=== PATIENT | female | born 1980 | race Caucasian/White ===

== ENCOUNTER 2017-06-11 00:53 | Day surgery (SDC) | payer OTHER ==
[2017-06-11 02:01] LABS: Basophils % (Auto) 0.6 % (0.0-1.8); Eosinophils % (Auto) 2.9 % (0.0-4.3); Hematocrit 36.3 % (30.3-42.9); Hemoglobin 12.2 gm/dl (10.1-14.3); Mean Corpuscular HGB Conc 34 % (30-34); Mean Corpuscular Hemoglobin 28 pg (28-32); Mean Corpuscular Volume 82 fl (79-97); Platelet Count 205 K/mm3 (140-440); Red Blood Count 4.41 M/mm3 (3.65-5.03); Red Cell Distribution Width 13.8 % (13.2-15.2); White Blood Count 9.3 K/mm3 (4.5-11.0)
[2017-06-11 02:20] LABS: Alanine Aminotransferase 39 units/L (7-56); Albumin 4.2 g/dL (3.9-5); Albumin/Globulin Ratio 1.6 %; Alkaline Phosphatase 60 units/L (35-129); Anion Gap 19 mmol/L; BUN/Creatinine Ratio 20; Blood Urea Nitrogen 12 mg/dL (7-17); Calcium 8.9 mg/dL (8.4-10.2); Carbon Dioxide 23 mmol/L (22-30); Chloride 100.9 mmol/L (98-107); Glucose 96 mg/dL (65-100); Lipase 29 units/L (13-60); Potassium 4.5 mmol/L (3.6-5.0); Sodium 138 mmol/L (137-145); Total Protein 6.8 g/dL (6.3-8.2)
--- NOTE | 2017-06-11 03:43 | Ultrasound Report ---
FINAL REPORT EXAM: US OB TRANSVAGINAL HISTORY: pelvic pain, vaginal bleeding TECHNIQUE: Transvaginal imaging was obtained of the pelvis including Doppler interrogation of the uterus and adnexa. FINDINGS: The uterus is anteverted measuring 11.3 cm x 5.9 cm by 6.9 cm. The endometrial thickness is 14.9 millimeters. The endometrium has a heterogeneous echotexture with hyperechoic areas and cystic changes. An intact gestational sac is not identified. Overall findings are compatible with retained products of conception. There several small nabothian cysts in the cervix. Free fluid is not seen. The maternal right ovary is normal size contour and echotexture measuring 2 cm x 1.6 cm x 1.4 cm. The left ovary measures 3.6 cm x 2 cm x 2.1 cm. There is a functional cyst in the left ovary measuring 2.1 cm in diameter representing corpus luteum cyst. IMPRESSION: Thickened endometrium with heterogeneous echotexture of the endometrium suggesting retained products of conception. 2.1 cm functional cyst left ovary most likely representing a corpus luteum cyst. No evidence of free fluid in the pelvis.
[2017-06-11 06:02] LABS: Bilirubin,Urine NEG (Negative); Blood,Urine LG (Negative); Ketones,Urine NEG (Negative); Leukocyte Esterase,Urine NEG (Negative); Mucus,Urine 2+ /HPF; Nitrite,Urine NEG (Negative); RBC,Urine > 182.0 /HPF (0.0-6.0); Urobilinogen,Urine < 2.0 mg/dL (<2.0)
--- NOTE | 2017-06-11 06:45 | Ultrasound Report ---
FINAL REPORT EXAM: US OB < = 14 WEEKS FETUS HISTORY: pelvic pain, vaginal bleeding TECHNIQUE: Transabdominal imaging was obtained of the pelvis. Doppler interrogation was obtained of the uterus and adnexa. FINDINGS: The uterus is anteverted measures 11.3 cm x 5.9 cm x 6.9 cm. The endometrial thickness is 14.9 millimeters. The endometrium has a heterogeneous echotexture with hyperechoic areas and cystic areas suggesting retained products of conception. An intact gestational sac is not identified. There are several nabothian cysts in the cervix. Free fluid is not seen. The right ovary is normal in size contour and echotexture measuring 2 cm x 1.6 cm x 1.4 cm. The left ovary measures 3.6 cm x 2 cm x 2.1 cm. There is a functional cyst in left ovary measuring 2.1 cm in maximum dimension. IMPRESSION: Thickened heterogeneous endometrium compatible with retained products of conception. 2.1 cm functional cyst left ovary most likely representing corpus luteum cyst.
--- NOTE | 2017-06-11 09:27 | Emergency Department Report ---
ED Female HPI - General Chief complaint: Vaginal Bleeding Stated complaint: VAG BLEEDING Time Seen by Provider: 06/11/17 09:06 Source: patient Mode of arrival: Ambulatory Limitations: No Limitations - History of Present Illness Initial comments: Patient is 36 years old female 3 para 2 presented with 2 day history of vaginal bleeding. Patient stated that she passed a fetus this morning, she does have a picture and I form for that. She also complained of lower crampy abdominal pain. Patient denied any nausea vomiting and no syncopal episode. MD Complaint: vaginal bleeding Radiation: suprapubic Quality: cramping Are you Now?: Yes Associated Symptoms: vaginal bleeding - Related Data Sexually active: Yes : 3 Para: 2 Allergies Allergy/AdvReac Type Severity Reaction Status Date / Time No Known Allergies Allergy Verified 06/11/17 01:04 ED Review of Systems ROS: Stated complaint: VAG BLEEDING Other details as noted in HPI Comment: All other systems reviewed and negative Constitutional: denies: chills, diaphoresis Respiratory: denies: cough, shortness of breath, SOB with exertion Cardiovascular: denies: chest pain, palpitations Gastrointestinal: abdominal pain. denies: nausea, vomiting, diarrhea, constipation, hematemesis Genitourinary: denies: urgency, frequency, hematuria Musculoskeletal: denies: back pain Neurological: denies: headache, weakness ED Past Medical Hx - Past Medical History Previous Medical History?: No - Surgical History Past Surgical History?: No - Social History Smoking Status: Never Smoker Substance Use Type: None ED Physical Exam - General Limitations: No Limitations General appearance: alert, in no apparent distress - Head Head exam: Present: atraumatic, normocephalic - Eye Eye exam: Present: normal appearance, PERRL Pupils: Present: normal accommodation - ENT ENT exam: Present: normal exam, normal orophraynx - Respiratory Respiratory exam: Present: normal lung sounds bilaterally. Absent: respiratory distress, wheezes, rales, rhonchi, stridor, chest wall tenderness, accessory muscle use, decreased breath sounds, prolonged expiratory - Cardiovascular Cardiovascular Exam: Present: regular rate, normal rhythm, normal heart sounds - GI/Abdominal GI/Abdominal exam: Present: soft, tenderness (suprapubic), normal bowel sounds. Absent: distended, guarding, rebound, rigid, diminished bowel sounds, organomegaly, mass, bruit, pulsatile mass, hernia - External exam: Present: normal external exam Speculum exam: Present: vaginal bleeding - Extremities Exam Extremities exam: Present: normal inspection, full ROM. Absent: tenderness, normal capillary refill, pedal edema - Back Exam Back exam: Present: normal inspection. Absent: tenderness, CVA tenderness (R), CVA tenderness (L) - Neurological Exam Neurological exam: Present: alert, oriented X3, CN II-XII intact, normal gait - Skin Skin exam: Present: warm, intact, normal color. Absent: cyanosis, diaphoretic ED Course Vital Signs 06/11/17 06/11/17 01:04 07:53 Temperature 98.0 F 98.3 F Pulse Rate 76 64 Respiratory 18 18 Rate Blood Pressure 110/62 Blood Pressure 137/82 [Right] O2 Sat by Pulse 100 100 Oximetry ED Medical Decision Making - Lab Data Result diagrams: 06/11/17 01:11 06/11/17 01:11 - Radiology Data Radiology results: report reviewed Ordering Physician: ED MD ABDON Date of Service: 06/11/17 Procedure(s): US OB transvaginal Accession Number(s): [id number] cc: ED MD ABDON FINAL REPORT EXAM: US OB TRANSVAGINAL HISTORY: pelvic pain, vaginal bleeding TECHNIQUE: Transvaginal imaging was obtained of the pelvis including Doppler interrogation of the uterus and adnexa. FINDINGS: The uterus is anteverted measuring 11.3 cm x 5.9 cm by 6.9 cm. The endometrial thickness is 14.9 millimeters. The endometrium has a heterogeneous echotexture with hyperechoic areas and cystic changes. An intact gestational sac is not identified. Overall findings are compatible with retained products of conception. There several small nabothian cysts in the cervix. Free fluid is not seen. The maternal right ovary is normal size contour and echotexture measuring 2 cm x 1.6 cm x 1.4 cm. The left ovary measures 3.6 cm x 2 cm x 2.1 cm. There is a functional cyst in the left ovary measuring 2.1 cm in diameter representing corpus luteum cyst. IMPRESSION: Thickened endometrium with heterogeneous echotexture of the endometrium suggesting retained products of conception. 2.1 cm functional cyst left ovary most likely representing a corpus luteum cyst. No evidence of free fluid in the pelvis. Transcribed By: RB Dictated By: BALBIR RUELAS MD Electronically Authenticated By: BALBIR RUELAS MD Signed Date/Time: 06/10/172339 DD/ 39 TD/TT: 06/10/172339 - Medical Decision Making Discussed with Dr. Macisa, I informed the patient, Dr. Macias is in the ER examining the patient. Critical care attestation.: If time is entered above; I have spent that time in minutes in the direct care of this critically ill patient, excluding procedure time. ED Disposition Clinical Impression: Vaginal bleeding during , antepartum, Incomplete miscarriage with blood clot, Abdominal pain affecting Disposition: -09 OP ADMIT IP TO THIS HOSP Is pt being admited?: Yes Condition: Stable Referrals: PRIMARY CARE, [Primary Care Provider] - 3-5 Days
--- NOTE | 2017-06-11 10:08 | Short Stay Summary ---
Short Stay Documentation Date of service: 06/11/17 Narrative H&P: 36 yo unreferred patient seen in the ER who says she was "2 months' with LMP of 03/25/2017 and who comes in with heavy vaginal bleeding and says she passed fetus at home. U/S shows retained products of conception. She consents to suction D&C for incomplete AB. Both ohter children born at [place]. MBT O pos, Hct 36 prior to surgery. - History Principal diagnosis: incomplete AB Past Medical History: No medical history Past Surgical History: No surgical history Social history: no significant social history, lives with family - Allergies and Medications Current Medications: Allergies No Known Allergies Allergy (Verified 06/11/17 01:04) - Physical exam General appearance: mild distress Integumentary: no rash HEENT: Atraumatic Lungs: Clear to auscultation Breasts: deferred Heart: Regular rate, No murmurs Gastrointestinal: normal Female Genitourinary: deferred Rectal Exam: deferred Extremities: No edema Neurological: Normal speech, Cranial nerves 3-12 NL - Brief post op/procedure progress note Date of procedure: 06/11/17 Pre-op diagnosis: incomplete at 11 weeks gestation Post-op diagnosis: same Procedure: Suction curettage to remove products of conception Anesthesia: GETA Findings: 11 week size uterus with open os that easily admits a 10 mm curette, typical products of conception obtained, sent for pathological examination. Estimated blood loss relatively minimal at 100 mL Surgeon: REY SANTOS Estimated blood loss: 50-100ml Pathology: list (products of conception) Specimen disposition: to lab Condition: stable - Hospital course Hospital course: Did well postoperatively and was discharged to return to my office or the office of provider of her choice in a week for follow-up and contraception - Disposition Condition at discharge: Good Disposition: DC-01 TO HOME OR SELFCARE - Discharge Diagnoses (1) Incomplete miscarriage with blood clot Status: Acute (2) 11 weeks gestation of Status: Acute Short Stay Discharge Plan Activity: no restrictions (pelvic rest) Weight Bearing Status: Full Weight Bearing Diet: regular Follow up with: PRIMARY CARE, [Primary Care Provider] - 3-5 Days Prescriptions: Ibuprofen [Motrin 600 MG tab] 600 mg PO Q8H PRN #30 tablet PRN Reason: Pain
--- NOTE | 2017-06-11 10:55 | Anesthesia Day of Surgery ---
Anesthesia Day of Surgery - Day of Surgery Patient Examined: Yes Patient H&P Reviewed: Yes Patient is NPO: Yes
--- NOTE | 2017-06-11 10:55 | Anesthesia Consultation ---
Anesthesia Consult and Med Hx Date of service: 06/11/17 - Airway Anesthetic Teeth Evaluation: Good ROM Head & Neck: Adequate Mental/Hyoid Distance: Adequate Mallampati Class: Class II Intubation Access Assessment: Probably Good - Pulmonary Exam CTA: Yes - Cardiac Exam Cardiac Exam: RRR - Pre-Operative Health Status ASA Pre-Surgery Classification: ASA1 Proposed Anesthetic Plan: General - Additional Comments Anesthesia Medical History Comments: speaks anguillan, understands a little slovak. No signif. medical history
[2017-06-11] MEDS ORDERED: VERSED IV NR (11:00)
[2017-06-11] MEDS ORDERED: PEPCID IV NR (11:00)
[2017-06-11] MEDS ORDERED: LACTATED RINGERS 1,000 ML IV SCH (11:00)
[2017-06-11] MEDS ORDERED: VERSED ONE (11:19)
[2017-06-11] MEDS ORDERED: LACTATED RINGERS 1,000 ML ONE (11:19)
[2017-06-11] MEDS ORDERED: PEPCID IV ONE (11:20)
[2017-06-11] MEDS ORDERED: METHERGINE IM ONE (12:19)
[2017-06-11] MEDS ORDERED: XYLOCAINE MPF 2% ONE (12:23)
[2017-06-11] MEDS ORDERED: SUBLIMAZE ONE (12:23)
[2017-06-11] MEDS ORDERED: DIPRIVAN 10 MG/ML IV ONE (12:23)
[2017-06-11] MEDS ORDERED: NACL 0.9% IR ONE (12:34)
[2017-06-11] MEDS ORDERED: CYTOTEC PR ONE (12:34)
[2017-06-11] MEDS ORDERED: DECADRON ONE (12:55)
[2017-06-11] MEDS ORDERED: ZOFRAN ONE (12:55)
[2017-06-11] MEDS ORDERED: CYTOTEC PR SCH (13:00)
[2017-06-11] MEDS ORDERED: NACL 0.9% 1000 ML 1,000 ML ONE (13:02)
[2017-06-11] MEDS ORDERED: TORADOL ONE (13:09)
--- NOTE | 2017-06-11 13:15 | Operative Report ---
Operative Report Operative Report: Date of procedure: 06/11/2017 Pre-operative diagnosis: Spontaneous incomplete at 11 weeks gestation Post-operative diagnosis: Same Procedure name(s): Suction curettage for incomplete Surgeon: Raine Macias Coating Mixer Supervisor: CHRISTAL Anesthesia: Gen. endotracheal Findings: 11 week size uterus with retained products of conception removed with suction curettage and minimal blood loss EBL: 100mL Procedure in detail: Patient was taken to the operating room, placed in the supine position. After adequate general endotracheal anesthesia was obtained she was prepped and draped in the dorsolithotomy position. Examination under anesthesia revealed a full bladder and an 11 week size uterus. The bladder was drained sterilely. The cervix was exposed with retractors and grasped vertically with a single-tooth tenaculum 10 mm suction curette was passed through into the uterus without dilation and circumferential suction was carried out in the usual fashion. Typical products of conception were obtained and the suction until the uterus clamped down on the suction curette. Suction curettage was continued and again the uterus was felt to be empty. Uterus was explored with endometrial forceps and no additional tissue was present. The uterus clamped down in the usual fashion and the bleeding stopped. The patient was observed for a few minutes under anesthesia and there was no further bleeding observed. The patient was then cleaned up, placed back in the supine position, awakened and discharged to recovery room in good condition.
[2017-06-11 17:25] VITALS: BP 105/69
== END 2017-06-11 15:40 | disposition home or self-care (01) ==
LOC: ED 00:53 → OR 11:31
PROVIDERS: ATTEND Obstetrics & Gynecology
DX: O03.4 Incomplete spontaneous abortion without complication (principal); N89.8 Other specified noninflammatory disorders of vagina; Z79.899 Other long term (current) drug therapy; Z3A.11 11 weeks gestation of pregnancy
CPT/HCPCS: 36415; 59812; 76801; 76817; 80053; 81001; 83690; 84702; 85025; 86850; 86900; 86901; 88305; 93005; 93010; J1100; J1885; J2250; J2405; J2704; J3010; J7030; J7120; J2210